=== PATIENT | female | born 1975 | race Native Hawaiian/Other Pacific Islander ===

== ENCOUNTER 2017-07-23 09:53 | Outpatient (CLI) | payer OTHER | END 2017-07-23 09:57 | disposition short-term general hospital (02) | LOC: AMB 09:53 | DX: R41.82 Altered mental status, unspecified (principal); R26.89 Other abnormalities of gait and mobility | CPT/HCPCS: A0425; A0427 ==

== ENCOUNTER 2017-07-23 09:56 | Emergency (ER) | payer OTHER ==
[~2017-07-23] VITALS: Ht 172.7 cm; Wt 108.9 kg
[2017-07-23 10:00] VITALS: TEMP 97.5
[2017-07-23 10:35] LABS: PLATELET COUNT 276 K/uL (152-353)
[2017-07-23 10:48] LABS: PARTIAL THROMBOPLASTIN TIME 23.4 SECONDS (24.5-33.6)
[2017-07-23 10:53] LABS: POTASSIUM 3.4 mmol/L (3.6-5.2); SODIUM 139 mmol/L (136-145)
[2017-07-23 12:00] VITALS: BP 136/88
== END 2017-07-23 12:30 | disposition home or self-care (01) ==
LOC: ED 09:56
PROVIDERS: Emergency Medicine
DX: R41.82 Altered mental status, unspecified (principal); R41.0 Disorientation, unspecified
CPT/HCPCS: 80053; 80307; 80320; 81000; 82550; 84484; 85027; 85610; 85730; 93005; 96361; 96374; 99284; G0479; J3490